=== PATIENT | male | born 1995 | race Asian ===

== ENCOUNTER 2016-11-03 23:23 | Emergency (ER) | payer OTHER ==
--- NOTE | 2016-11-04 00:15 | ED ---
Upper Extremity Pain - HPI Summary HPI Summary: Pt here w/ Lt shoulder pain with what he believes is dislocation. H/o dislocation and surgery for repair. He's dislocated once since and was able to reduce on his own but was unable to reduce on his own tonight - too painful. Denies numbness, tingling, weakness. Declines pain medication at this time. - History of Current Complaint Chief Complaint: EDExtremityUpper Stated Complaint: LT SHOULDER INJURY Time Seen by Provider: 11/04/16 00:06 Hx Obtained From: Patient - Allergies/Home Medications Allergies/Adverse Reactions: Allergies Allergy/AdvReac Type Severity Reaction Status Date / Time No Known Allergies Allergy Verified 11/03/16 23:28 PMH/Surg Hx/FS Hx/Imm Hx Previously Healthy: Yes Endocrine/Hematology History: Denies: Hx Anticoagulant Therapy, Hx Blood Disorders Infectious Disease History: Yes Infectious Disease History: Denies: Traveled Outside the [place] in Last 30 Days - Family History Known Family History: Positive: None - Social History Occupation: Student Lives: With Family Alcohol Use: Occasionally Hx Substance Use: No Substance Use Type: Reports: None Hx Tobacco Use: No Smoking Status (MU): Never Smoked Tobacco Review of Systems Negative: Chest Pain Negative: Shortness Of Breath Positive: no symptoms reported Musculoskeletal: Other - see HPI Skin: Negative Neurological: Negative Positive: Anxious All Other Systems Reviewed And Are Negative: Yes Physical Exam Triage Information Reviewed: Yes Vital Signs On Initial Exam: Initial Vitals Temp Pulse Resp BP Pulse Ox 98.2 F 124 16 134/83 97 11/03/16 23:26 11/03/16 23:26 11/03/16 23:26 11/03/16 23:26 11/03/16 23:26 Vital Signs Reviewed: Yes Appearance: Positive: Well-Appearing, Well-Nourished, Pain Distress Skin: Positive: Warm, Dry Head/Face: Positive: Normal Head/Face Inspection Eyes: Positive: EOMI ENT: Positive: Hearing grossly normal Respiratory/Lung Sounds: Positive: Breath Sounds Present Cardiovascular: Positive: Pulses are Symmetrical in both Upper and Lower Extremities Musculoskeletal: Positive: Limited @ - Lt shoulder w/ deformity - limited ROM, pain Neurological: Positive: Alert, Oriented to Person Place, Time - sensory intact and motor intact from phalanges, wrist - unable to asses elbow as too painful, CN Intact II-III Psychiatric: Positive: Anxious Procedures - Joint Reduction Joint Reduction Site: shoulder (L) Conscious Sedation: No Reduction Attempts: 3 - 2 traction/countertraction; 1 weight traction supine - success Pre-Procedure NV Exam: Yes Post Joint Reduction Film: joint reduced Diagnostics - Vital Signs Vital Signs Temp Pulse Resp BP Pulse Ox 11/03/16 23:29 98.2 F 124 16 134/83 97 11/03/16 23:26 98.2 F 124 16 134/83 97 - Laboratory Lab Statement: Any lab studies that have been ordered have been reviewed, and results considered in the medical decision making process. Re-Evaluation - Re-Evaluation First Eval Change: Worse - pt requests pain medication Second Eval Change: Improved - pain improved s/p reduction and pain med - tolerated pain medication well Course/Dx - Course Course Of Treatment: Wet read of Left shoulder XR: anterior dislocation w/o fx. Wet read of post reduction Lt shoulder XR: successful reduction - Diagnoses Provider Diagnoses: Dislocation of left shoulder joint Discharge - Discharge Plan Condition: Stable Disposition: HOME Patient Education Materials: Shoulder Dislocation (ED) Referrals: Carolyne Morin MD [Medical Doctor] - Additional Instructions: It is important that you remain in your shoulder immobilizer to reduce risk of dislocation. Rest, ice You may take ibuprofen with food for pain Follow-up with orthopedist this week - call Saturday to schedule an appointment *If you develop numbness, weakness, coolness of your extremity, return to ED
[2016-11-04] MEDS ORDERED: Diazepam SYRINGE* 5 MG/ML SYRINGE IV ONE (00:45)
[2016-11-04] MEDS ORDERED: Ondansetron INJ* 2 MG/ML VIAL IV ONE (01:42)
[2016-11-04] MEDS ORDERED: Morphine INJ* 4 MG/ML 1 ML SYRINGE IV ONE (01:42)
[2016-11-04] MEDS ORDERED: Ondansetron INJ* 2 MG/ML VIAL ONE (01:43)
[2016-11-04 03:08] VITALS: BP 138/76
--- NOTE | 2016-11-04 07:47 | RAD ---
HISTORY: Left shoulder injury, pain COMPARISONS: None VIEWS: 4, Frontal internal rotation, external rotation, and outlet views of the left shoulder FINDINGS: BONE DENSITY: Normal. BONES: There is a probable fracture of the inferior margin of the glenoid JOINTS: There is no arthropathy. ALIGNMENT: There is anterior-inferior dislocation of the humerus with respect to the glenoid fossa. SOFT TISSUES: Unremarkable. OTHER FINDINGS: None. IMPRESSION: 1. LEFT SHOULDER DISLOCATION. 2. PROBABLE BANKART FRACTURE
--- NOTE | 2016-11-04 07:52 | RAD ---
HISTORY: Post reduction COMPARISONS: November 04, 2016 at 12:29 AM VIEWS: 1, frontal view of the left shoulder in external rotation. FINDINGS: BONE DENSITY: Normal. BONES: Again noted is a probable fracture of the inferior margin of the glenoid JOINTS: There is no arthropathy. ALIGNMENT: There has been interval reduction of the humeral head dislocation SOFT TISSUES: Unremarkable. OTHER FINDINGS: None. IMPRESSION: 1. INTERVAL REDUCTION OF HUMERAL HEAD DISLOCATION. 2. AGAIN NOTED IS PROBABLE FRACTURE OF THE INFERIOR MARGIN OF THE GLENOID, NOT WELL EVALUATED ON THIS SINGLE FRONTAL PROJECTION
== END 2016-11-04 03:09 | disposition home or self-care (01) ==
LOC: ED 23:23
DX: S43.005A Unspecified dislocation of left shoulder joint, initial encounter (principal); X58.XXXA Exposure to other specified factors, initial encounter; Y92.9 Unspecified place or not applicable
CPT/HCPCS: 23650; 96374; 96375; 99282; J2270; J2405; J3360